=== PATIENT | male | born 1965 | race Caucasian/White ===

== ENCOUNTER 2019-07-03 06:00 | Day surgery (SDC) | payer BC, OTHER ==
[~2019-07-03] VITALS: Ht 170.2 cm; Wt 110.4 kg
[~2019-07-03 06:00] MED LIST: ALLO300 PO; CARV25 PO; HYDCHL12.5 PO; LOSA50 PO; NIFE60ER PO
[2019-07-03] MEDS ORDERED: VERA180ERB PO (06:27)
[2019-07-03] MEDS ORDERED: TRADJENTA5 MG PO (06:28)
[2019-07-03] MEDS ORDERED: ASPI81CH PO (06:28)
[2019-07-03] MEDS ORDERED: SERT100 PO (06:28)
[2019-07-03] MEDS ORDERED: ATOR20 PO (06:29)
[2019-07-03] MEDS ORDERED: DOXA4 PO (06:29)
--- NOTE | 2019-07-03 06:39 | NUR ---
History, Chart, Medications and Allergies reviewed before start of procedure. Patient confirms NPO status and agrees with scheduled surgery. Pre-Op teaching done. Pt verbalizes understanding. Patient reports completing Chlorhexadine shower X2 prior to admission to hospital. Lungs clear T/O to Auscultation.
[2019-07-03] MEDS ORDERED: TRAM50 PO (07:14)
--- NOTE | 2019-07-03 12:13 | NUR ---
Discharge instructions reviewed with patient. Patient verbalizes understanding. Copy given to patient to take home. Patient up to Ambulate independently. Gait steady. Patient States Post-Procedure ride home has been arranged. Discharged via wheelchair to private car for ride home. ALL BELONINGS RETURNED TO PATIENT. INCISIONS REMAINED INTACT.
== END 2019-07-03 23:27 | disposition home or self-care (01) ==
LOC: ORSCMMR 06:00 → ORD 07:30 → ORSCMMR 23:27
PROVIDERS: Surgery
PROC: 0YU54JZ Supplement Right Inguinal Region with Synthetic Substitute, Percutaneous Endoscopic Approach (ICD-10-PCS; principal; 2019-07-03 07:30)
PROC: 8E0W4CZ Robotic Assisted Procedure of Trunk Region, Percutaneous Endoscopic Approach (ICD-10-PCS; principal; 2019-07-03 07:30)
DX: K40.90 Unilateral inguinal hernia, without obstruction or gangrene, not specified as recurrent (principal); J45.909 Unspecified asthma, uncomplicated; G47.33 Obstructive sleep apnea (adult) (pediatric); I12.9 Hypertensive chronic kidney disease with stage 1 through stage 4 chronic kidney disease, or unspecified chronic kidney disease; E11.22 Type 2 diabetes mellitus with diabetic chronic kidney disease; N18.3 Chronic kidney disease, stage 3 (moderate); E78.5 Hyperlipidemia, unspecified; Z79.899 Other long term (current) drug therapy; Z79.82 Long term (current) use of aspirin
CPT/HCPCS: 49650; S2900; 82947; C1781; J0690; J1100; J1885; J2250; J2405; J2704; J3010; J7120

== ENCOUNTER → 2019-08-28 | Outpatient (CLI) | payer BC, OTHER ==
[~2019-08-28] MED LIST changes: +ASPI81CH PO; +ATOR20 PO; +DOXA4 PO; +SERT100 PO; +TRADJENTA5 MG PO; +TRAM50 PO; +VERA180ERB PO
[2019-08-28 12:23] LABS: Albumin, Blood 4.3 g/dL (3.4-5.0); Albumin/Globulin Ratio 1.3 (0.8-1.8); Bilirubin, Total 0.7 mg/dL (0.1-1.0); Bun/Creatinine Ratio 16.6 (12.0-20.0); Creatinine, Blood 1.87 mg/dL (0.60-1.20); Globulin, Blood 3.2 g/dL (2.2-4.0); Potassium, Blood 4.1 mmol/L (3.5-5.5); Total Protein, Blood 7.5 g/dL (6.4-8.2)
== END | disposition home or self-care (01) ==
LOC: LAB SHORT 12:04 → LAB EV 12:04
PROVIDERS: Physician Assistant Medical
DX: R73.9 Hyperglycemia, unspecified (principal)
CPT/HCPCS: 80053; 84681; 86341

== ENCOUNTER → 2022-07-08 | Outpatient (CLI) | payer OTHER ==
[2022-07-10 14:10] LABS: COTININE Negative ng/mL (Cutoff=300)
== END ==
LOC: LAB 14:45 → LAB SHORT 14:45
PROVIDERS: Orthopaedic Surgery
DX: M17.0 Bilateral primary osteoarthritis of knee (principal)

== ENCOUNTER 2023-09-13 14:54 | Inpatient (IN) | payer OTHER ==
[~2023-09-13] VITALS: Ht 175.3 cm; Wt 103.8 kg
[~2023-09-13 14:54] MED LIST changes: -LOSA50 PO; +LOSARTAN POTAS100 M1 PO
[2023-09-13 15:22] LABS: BASOPHILS ABSOLUTE AUTO 0.04 K/mm3 (0.00-0.23); BASOPHILS PERCENT AUTO 0 % (0-2); EOSINOPHILS ABSOLUTE AUTO 0.28 K/mm3 (0.00-0.68); EOSINOPHILS PERCENT AUTO 3 % (0-6); Hematocrit 43.4 % (37.0-53.0); Hemoglobin 15.5 g/dL (13.5-17.5); IMMATURE GRAN ABSOLUTE AUTO 0.04 K/mm3 (0.00-0.10); IMMATURE GRAN PERCENT AUTO 0 % (0-1); LYMPHOCYTES ABSOLUTE AUTO 1.44 K/mm3 (0.84-5.20); LYMPHOCYTES PERCENT AUTO 14 % (21-46); MONOCYTES ABSOLUTE AUTO 0.55 K/mm3 (0.16-1.47); MONOCYTES PERCENT AUTO 5 % (4-13); Mean Corpuscular HGB 32.2 pg (26.0-34.0); Mean Corpuscular HGB Conc 35.7 g/dL (31.5-36.5); Mean Corpuscular Volume 90 fL (80-100); Mean Platelet Volume 10.6 fL (9.1-12.4); NEUTROPHILS ABSOLUTE AUTO 8.13 K/mm3 (1.96-9.15); NEUTROPHILS PERCENT AUTO 78 % (41-73); Platelet Count 209 K/mm3 (150-400); RDW Standard Deviation 42.8 fL (35.1-46.3); Red Blood Cell Count 4.81 M/mm3 (4.30-5.90); White Blood Cell Count 10.48 K/mm3 (4.00-11.30)
[2023-09-13 15:46] LABS: Albumin, Blood 3.3 g/dL (3.4-5.0); Albumin/Globulin Ratio 0.9 (0.8-1.8); Bilirubin, Total 0.6 mg/dL (0.1-1.0); Bun/Creatinine Ratio 10.8 (12.0-20.0); Calcium, Blood 8.6 mg/dL (8.5-10.1); Creatinine, Blood 3.32 mg/dL (0.60-1.20); Globulin, Blood 3.5 g/dL (2.2-4.0); Potassium, Blood 3.6 mmol/L (3.5-5.5); Total Protein, Blood 6.8 g/dL (6.4-8.2)
[2023-09-13 20:31] VITALS: BP 151/95
[2023-09-13] MEDS ORDERED: INSULIN GL100 UNIT/2 SC (21:30)
[2023-09-13] MEDS ORDERED: KLOR-CON 1010 ME9 PO (21:31)
[2023-09-13] MEDS ORDERED: Ketoconazole120 ML TOP (21:35)
[2023-09-14 05:05] LABS: BASOPHILS ABSOLUTE AUTO 0.04 K/mm3 (0.00-0.23); BASOPHILS PERCENT AUTO 1 % (0-2); EOSINOPHILS ABSOLUTE AUTO 0.27 K/mm3 (0.00-0.68); EOSINOPHILS PERCENT AUTO 4 % (0-6); Hematocrit 38.4 % (37.0-53.0); Hemoglobin 13.7 g/dL (13.5-17.5); IMMATURE GRAN ABSOLUTE AUTO 0.04 K/mm3 (0.00-0.10); IMMATURE GRAN PERCENT AUTO 1 % (0-1); LYMPHOCYTES PERCENT AUTO 22 % (21-46); MONOCYTES ABSOLUTE AUTO 0.48 K/mm3 (0.16-1.47); MONOCYTES PERCENT AUTO 7 % (4-13); Mean Corpuscular HGB 32.5 pg (26.0-34.0); Mean Corpuscular HGB Conc 35.7 g/dL (31.5-36.5); Mean Corpuscular Volume 91 fL (80-100); Mean Platelet Volume 10.5 fL (9.1-12.4); NEUTROPHILS ABSOLUTE AUTO 4.97 K/mm3 (1.96-9.15); NEUTROPHILS PERCENT AUTO 67 % (41-73); Platelet Count 166 K/mm3 (150-400); RDW Coefficient Variation 13.2 % (11.7-14.2); RDW Standard Deviation 43.7 fL (35.1-46.3); Red Blood Cell Count 4.21 M/mm3 (4.30-5.90)
[2023-09-14 05:53] LABS: Bilirubin, Total 0.5 mg/dL (0.1-1.0); Bun/Creatinine Ratio 11.9 (12.0-20.0); Calcium, Blood 7.9 mg/dL (8.5-10.1); Creatinine, Blood 3.18 mg/dL (0.60-1.20); Globulin, Blood 3.1 g/dL (2.2-4.0); Potassium, Blood 2.8 mmol/L (3.5-5.5); Total Protein, Blood 6.1 g/dL (6.4-8.2)
[2023-09-14 06:05] VITALS: BP 140/82
[2023-09-14 07:51] VITALS: BP 133/80
--- NOTE | 2023-09-14 08:03 | NUR ---
0800- THIS RN REPORTED TO SR. MINOR IN PERSON PT'S HR=48 AND PT'S POTASSIUM LEVEL THIS MORNING=2.8. SAID TO HOLD COREG THIS AM AND HE WILL PUT IN POTASSIUM REPLACEMENT ORDERS.
--- NOTE | 2023-09-14 08:33 | NUR ---
SHIFT SUMMARY PT IS A&OX4, [place]. VSS ON RA, NSR 60-70'S PER TELEMETRY. C/O PAIN IN HIS BILATERAL KNEES. AND CHRONIC NECK AND BACK PAIN. REFUSED TRAMADOL D/T IT MESSING HIS STOMACH UP PER PT. TROPONIN [facility]S CRITICAL BUT TRENDING DOWN, LAST DRAW WAS 169. TOLERATING AN ADA DIET. UP INDEPENDENTLY TO BR, USING URINAL. VOIDIDNG [place] AMOUNTS OF CLEAR, YELLOW URINE. NO BM THIS SHIFT. NO IGNITION SOURCES PRESENT ON ADMIT. BED IN LOWEST POSITION, CALL LIGHT WITHIN REACH. FIRE SAFETY CHECKS COMPLETED
[2023-09-14 12:21] LABS: Bun/Creatinine Ratio 11.4 (12.0-20.0); Calcium, Blood 8.2 mg/dL (8.5-10.1); Creatinine, Blood 3.15 mg/dL (0.60-1.20); Potassium, Blood 3.5 mmol/L (3.5-5.5)
[2023-09-14 15:26] VITALS: BP 168/94
--- NOTE | 2023-09-14 18:42 | NUR ---
SUMMARY- NO ACUTE EVENTS THIS SHIFT. NO PT COMPLAINTS. DENIES PAIN. INDEPENDENT IN ROOM. AAOX4.
[2023-09-14 19:18] VITALS: BP 172/84
[2023-09-14 20:33] VITALS: BP 184/103
[2023-09-15 02:50] VITALS: BP 156/90
--- NOTE | 2023-09-15 03:28 | NUR ---
NIGHT SJIFT SUMMARY BP ELEVATED, OTHERWISE VSS. VOICED SOME CHEST PAIN NEAR SHIFT COMMENCE, 2:10, RECEIVED HS MEDS AND SOON THE CP WENT AWAY. IVF OF NS INFUSING AT 125 ML/HR. COOPERATIVE WITH CARE. DENIES VERTIGO AND CP AFTER ABOVE MENTIONED CP. HAS BEEN RESTING QUIETLY WITH OCCASIONAL INERRUPTION. UP AD GONZALES. CALL LIGHT IN REACH. WILL CONTINUE TO MONITOR
[2023-09-15 05:40] LABS: BASOPHILS ABSOLUTE AUTO 0.03 K/mm3 (0.00-0.23); BASOPHILS PERCENT AUTO 0 % (0-2); EOSINOPHILS ABSOLUTE AUTO 0.23 K/mm3 (0.00-0.68); EOSINOPHILS PERCENT AUTO 3 % (0-6); Hematocrit 39.1 % (37.0-53.0); Hemoglobin 14.1 g/dL (13.5-17.5); IMMATURE GRAN ABSOLUTE AUTO 0.03 K/mm3 (0.00-0.10); IMMATURE GRAN PERCENT AUTO 0 % (0-1); LYMPHOCYTES PERCENT AUTO 17 % (21-46); MONOCYTES ABSOLUTE AUTO 0.44 K/mm3 (0.16-1.47); MONOCYTES PERCENT AUTO 6 % (4-13); Mean Corpuscular HGB 32.3 pg (26.0-34.0); Mean Corpuscular HGB Conc 36.1 g/dL (31.5-36.5); Mean Corpuscular Volume 90 fL (80-100); Mean Platelet Volume 10.3 fL (9.1-12.4); NEUTROPHILS ABSOLUTE AUTO 5.15 K/mm3 (1.96-9.15); NEUTROPHILS PERCENT AUTO 73 % (41-73); Platelet Count 143 K/mm3 (150-400); RDW Coefficient Variation 12.6 % (11.7-14.2); RDW Standard Deviation 41.1 fL (35.1-46.3); Red Blood Cell Count 4.36 M/mm3 (4.30-5.90); White Blood Cell Count 7.08 K/mm3 (4.00-11.30)
[2023-09-15 05:56] LABS: Albumin, Blood 3.1 g/dL (3.4-5.0); Bilirubin, Total 0.5 mg/dL (0.1-1.0); Bun/Creatinine Ratio 11.1 (12.0-20.0); Calcium, Blood 8.2 mg/dL (8.5-10.1); Creatinine, Blood 2.87 mg/dL (0.60-1.20); Globulin, Blood 3.2 g/dL (2.2-4.0); Potassium, Blood 2.7 mmol/L (3.5-5.5); Total Protein, Blood 6.3 g/dL (6.4-8.2)
[2023-09-15 07:36] VITALS: BP 152/91
--- NOTE | 2023-09-15 11:35 | NUR ---
COREG DISCHARGE ORDER THIS RN TALKED WITH DR. MINOR FOR PARAMETERS ON COREG PRN. DR. MINOR ORDERED COREG TO BE TAKEN FOR HEART RATE GREATER THAN 120. THIS RN CALLED PARAMETERS INTO THE PHARMACY, [facility].
--- NOTE | 2023-09-15 14:23 | NUR ---
LATE ENTRY DISCHARGED PT DISCHARGED HOME. FAMILY AT BEDSIDE. EDUCATION PROVIDED ON HEART RATE AND BLOOD PRESSURE MONITORING FOR SAFE MEDICATION ADMINISTRATION. PT VERBALIZED UNDERSTANDING. DISCHARGED INSTRUCTIONS DISCUSSED WITH PT. NO QUESTIONS OR CONCERNS AT THIS TIME.
== END 2023-09-15 12:35 | disposition home or self-care (01) | DRG 683 ==
LOC: ER 14:54 → MEDS 14:55 → ENPENDDIS 09-15 10:14 → MEDS 09-15 12:35
PROVIDERS: Physician Assistant; ADMIT Family Medicine
DX: N17.9 Acute kidney failure, unspecified (principal); I24.89 Other forms of acute ischemic heart disease; R00.2 Palpitations; I12.9 Hypertensive chronic kidney disease with stage 1 through stage 4 chronic kidney disease, or unspecified chronic kidney disease; N18.9 Chronic kidney disease, unspecified; F32.A Depression, unspecified; G47.33 Obstructive sleep apnea (adult) (pediatric); M10.9 Gout, unspecified; E11.22 Type 2 diabetes mellitus with diabetic chronic kidney disease; M17.0 Bilateral primary osteoarthritis of knee; J44.9 Chronic obstructive pulmonary disease, unspecified; Z88.5 Allergy status to narcotic agent; Z88.8 Allergy status to other drugs, medicaments and biological substances; Z79.82 Long term (current) use of aspirin; Z89.412 Acquired absence of left great toe; Z89.422 Acquired absence of other left toe(s)
CPT/HCPCS: 36415; 71046; 80048; 80053; 82947; 83880; 84484; 85025; 93005; 93010; 94660; 94762; 96361; 96365; 96366; 96372; 96376; 99285-25; A9270; G0378; J1644; J1815; J3480; J7030